=== PATIENT | female | born 1950 | race Caucasian/White ===

== ENCOUNTER 2022-07-08 08:58 | Outpatient (CLI) | payer OTHER, SELFPAY ==
[2022-07-08 14:15] LABS: Albumin* 5.1 g/dL (3.3-5.0); Chloride* 94 mmol/L (96-114); Sodium* 137 mmol/L (135-149)
[2022-07-08 14:18] LABS: Alkaline Phosphatase* 61 U/L (40-150); Aspartate Amino Transferase* 27 U/L (12-35); Bilirubin Total* 0.7 mg/dL (0.1-1.5); Blood Urea Nitrogen* 23 mg/dL (7-30); Carbon Dioxide* 31 mmol/L (20-32); Cholesterol* 194 mg/dL (90-199); Creatinine* 1.1 mg/dL (0.5-1.5); Estimated Glomerular Filt Rate 54 ml/min; Glucose* 100 mg/dL (60-115); Total Protein* 7.8 g/dL (6.0-8.3)
[2022-07-08 14:19] LABS: Alanine Aminotransferase* 25 U/L (4-35); Calcium* 10.2 mg/dL (8.4-10.6); HDL Cholesterol* 74 mg/dL (>=50); LDL Cholesterol Calculated 85 mg/dL (<100); Triglycerides* 176 mg/dL (40-149)
[2022-07-08 14:30] LABS: Creatinine Urine 91.2 mg/dL
[2022-07-08 14:33] LABS: Microalbumin Creatinine Ratio 10 mg/g (0-30); Microalbumin Urine < 1 mg/dL
== END 2022-07-08 08:59 | disposition home or self-care (01) ==
PROVIDERS: PCP Physician Assistant Medical; Visit Provider Physician Assistant Medical
DX: Z00.00 Encounter for general adult medical examination without abnormal findings (principal); E78.5 Hyperlipidemia, unspecified; R73.03 Prediabetes
CPT/HCPCS: 80053; 80061; 82043; 82570

== ENCOUNTER 2023-09-15 09:35 | Outpatient (CLI) | payer OTHER, SELFPAY | END 2023-09-15 09:36 | disposition home or self-care (01) | LOC: NFLDREF 09-16 07:26 | PROVIDERS: PCP Physician Assistant Medical; Referring Provider Physician Assistant Medical; Visit Provider Physician Assistant Medical | DX: E78.5 Hyperlipidemia, unspecified (principal); R73.03 Prediabetes; I10 Essential (primary) hypertension; R35.0 Frequency of micturition; R19.5 Other fecal abnormalities; R10.2 Pelvic and perineal pain; R79.89 Other specified abnormal findings of blood chemistry; J45.909 Unspecified asthma, uncomplicated | CPT/HCPCS: 80053; 80061; 82043; 82570; 82607; 84443 ==

== ENCOUNTER 2023-09-16 11:45 | Outpatient (CLI) | payer MEDICARE, SELFPAY | END 2023-09-16 11:46 | disposition home or self-care (01) | LOC: NFLDREF 09-22 16:04 | PROVIDERS: PCP Physician Assistant Medical; Referring Provider Physician Assistant Medical; Visit Provider Physician Assistant Medical | DX: R35.0 Frequency of micturition (principal); E78.5 Hyperlipidemia, unspecified; I10 Essential (primary) hypertension; R73.03 Prediabetes; R79.89 Other specified abnormal findings of blood chemistry | CPT/HCPCS: 82043; 82570; 87086 ==

== ENCOUNTER 2023-09-28 07:07 | Outpatient (CLI) | payer MEDICARE, SELFPAY ==
--- NOTE | 2023-09-28 07:15 | CRLHL7_ITS ---
For Patients: As a result of the Century Cures Act, medical imaging exams and procedure reports are released immediately into your electronic medical record. You may view this report before your referring provider. If you have questions, please contact your health care provider. CLINICAL HISTORY: pelvic pressure TECHNIQUE: 2D ontiveros scale ultrasound. In addition color Doppler and spectral Doppler analysis was performed of the pelvis using a transabdominal and transvaginal approach. FINDINGS: The myometrium has a normal uniform echotexture. The uterus measures 5.8 x 2.5 x 3.2 cm. The endometrial lining measures 10 mm in thickness. Possible polyp is present measuring 12 x 5 x 9 millimeters. The right ovary measures 1.6 x 0.8 x 1.5 cm in size and the right ovary measures 1.6 x 1.0 x 1.1 cm. The ovaries demonstrate normal arterial and venous blood flow on color Doppler and spectral Doppler analysis. There are no suspicious fluid collections within the cul-de-sac. IMPRESSION: Possible endometrial polyp measuring 12 x 5 x 9 millimeters. No uterine fibroid. Normal ovaries. No adnexal mass. No torsion. No excess pelvic free fluid. Dictated by Sriram Fuentes MD @ 09/28/2023 10:16:03 AM (Electronically Signed)
== END 2023-09-28 07:08 | disposition home or self-care (01) ==
LOC: US 07:10
PROVIDERS: PCP Physician Assistant Medical; Visit Provider Physician Assistant Medical
DX: R10.2 Pelvic and perineal pain (principal)
CPT/HCPCS: 76830; 76856

== ENCOUNTER 2023-10-31 08:33 | Outpatient (CLI) | payer MEDICARE, SELFPAY | END 2023-10-31 08:34 | disposition home or self-care (01) | LOC: NFLDREF 11-14 14:50 | PROVIDERS: PCP Physician Assistant Medical; Referring Provider Physician Assistant Medical; Visit Provider Physician Assistant Medical | DX: E83.52 Hypercalcemia (principal) | CPT/HCPCS: 82306; 82310; 83970 ==

== ENCOUNTER 2023-11-23 08:02 | Outpatient (CLI) | payer MEDICARE, SELFPAY | END 2023-11-23 08:03 | disposition home or self-care (01) | LOC: LKVREF 08:03 | PROVIDERS: PCP Physician Assistant Medical; Visit Provider Physician Assistant Medical | DX: E83.52 Hypercalcemia (principal); Z01.818 Encounter for other preprocedural examination | CPT/HCPCS: 82310 ==

== ENCOUNTER 2023-11-29 07:48 | Day surgery (SDC) | payer MEDICARE, SELFPAY ==
[2023-11-29 08:00] VITALS: BP 148/84; PULSE 74; RESP 16; TEMP 36.6; O2SAT 96; BMI 25.8
[2023-11-29] MEDS: LACTATED RINGERS 1000 ML 1,000 ML 100 ML IV (08:35)
[2023-11-29] MEDS: SODIUM CHLORIDE 0.9 % (FLUSH) 10 ML SYRINGE IVF (08:35)
--- NOTE | 2023-11-29 08:35 | W.PM.H&PU ---
History & Physical Update History & Physical Update H&P Reviewed and patient assessed: No changes noted
[2023-11-29] MEDS: BUPIVACAINE 0.5% 30 ML INJECTION (09:30)
--- NOTE | 2023-11-29 09:33 | W.ANESCHARGE ---
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
--- NOTE | 2023-11-29 09:52 | W.PM.GYNPROC ---
Procedure Note Time Seen by Provider: 09:52 Date of procedure: 11/29/23 Pre-op diagnosis: Thickened endometrial stripe Post-op diagnosis: same Procedure: Hysteroscopy, dilation curettage, polypectomy (TruClear) Anesthesia: MAC Complications: None Surgeon: Brii Coleman MD Estimated blood loss (mL): 5 IV fluids (mL): 400 Pathology: specimen obtained, sent to pathology Condition: stable Disposition: same day Findings: 1 cm polyp-like mass at the left uterine fundus Otherwise atrophic endometrium Unremarkable bilateral tubal ostia Procedure Description: Procedure in detail: Patient was taken to the operating room with IV running. She was positioned in dorsal lithotomy position with her legs fully supported in Yellofin stirrups. Monitored anesthesia care was administered. She was prepped and draped in the usual sterile fashion. Exam under anesthesia was performed for the above-noted findings. Speculum was inserted. Cervix visualized and grasped along the anterior lip with a single-tooth tenaculum. Paracervical block was performed in the usual fashion with 0.5% Marcaine, total 20 mL. Cervix was serially dilated to accommodate the TRUCLEAR hysteroscope. This was assembled with saline inflow and outflow in place. The line was flushed of bubbles. The hysteroscope was advanced through the cervix into the endometrial cavity for the above noted findings. The tissue morcellator was then inserted through the operating channel. Window lock was performed. Under direct visualization, the endometrial polyp/mass was resected in its entirety without difficulty. The remainder of the endometrial cavity was atrophic, no circumferential curettage was required. The hysteroscope and morcellator were then removed from the uterus. Tenaculum was removed from the anterior lip of cervix. Hemostasis was noted. Patient tolerated procedure well. She was taken to recovery area in stable condition. Surgical debrief completed firming EBL of 5 mL, fluid deficit of 115mL, no UOP, IVF 400mL. Specimen is endometrial curettings, sent for pathologic evaluation.
--- NOTE | 2023-11-29 09:57 | W.ANESCHARGE ---
Anesthesia Charges Start Date/Time Anesthesia Start Date: 11/29/23 Anesthesia Start Time: 09:15 Stop Date/Time Anesthesia Stop Date: 11/29/23 Anesthesia Stop Time: 10:00 Summary Extremes of Age - Over 70 or under 1: MDA
[2023-11-29 09:58] VITALS: BP 101/76; PULSE 74; RESP 16; TEMP 36.8; O2SAT 97
[2023-11-29 10:00] VITALS: BP 93/64; PULSE 69; RESP 16; TEMP 36.8; O2SAT 97
[2023-11-29 10:15] VITALS: BP 113/72; PULSE 79; RESP 18; O2SAT 98
[2023-11-29 10:30] VITALS: BP 127/93; PULSE 71; RESP 16; TEMP 36.8; O2SAT 96
--- NOTE | 2023-11-29 11:07 | SUR.PHASEII ---
Discharge instructions given to patient and her spouse. Signature page signed by patient, but was accidentally taken home by her.
== END 2023-11-29 10:50 | disposition home or self-care (01) ==
PROVIDERS: PCP Physician Assistant Medical; Visit Provider Obstetrics & Gynecology
PROC: 0UDB8ZZ Extraction of Endometrium, Via Natural or Artificial Opening Endoscopic (ICD-10-PCS; CPT 58558; principal; 2023-11-29 09:15)
DX: N84.0 Polyp of corpus uteri (principal); R93.89 Abnormal findings on diagnostic imaging of other specified body structures
CPT/HCPCS: 58558; 00952; 85018; 88305; 99100; J0665; J1885; J2405; J3010; J7120

== ENCOUNTER 2023-12-29 08:51 | Outpatient (CLI) | payer MEDICARE, SELFPAY ==
--- NOTE | 2023-12-29 10:35 | W.ANESCHARGE ---
Anesthesia Charges Start Date/Time Anesthesia Start Date: 12/29/23 Anesthesia Start Time: 09:54 Stop Date/Time Anesthesia Stop Date: 12/29/23 Anesthesia Stop Time: 10:57 Summary Extremes of Age - Over 70 or under 1: MDA
--- NOTE | 2023-12-29 10:54 | W.ANESCHARGE ---
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
== END 2023-12-29 08:52 | disposition home or self-care (01) ==
LOC: OP CLINIC 08:51
PROVIDERS: PCP Physician Assistant Medical; Visit Provider Surgery
DX: R19.5 Other fecal abnormalities (principal); K63.5 Polyp of colon; K64.4 Residual hemorrhoidal skin tags; K57.30 Diverticulosis of large intestine without perforation or abscess without bleeding
CPT/HCPCS: 00811; 45381; 45385; 88305; 99100; J2704

== ENCOUNTER 2024-09-27 08:13 | Outpatient (CLI) | payer MEDICARE, SELFPAY | END 2024-09-27 08:14 | disposition home or self-care (01) | PROVIDERS: PCP Physician Assistant Medical; Visit Provider Physician Assistant Medical | DX: E78.5 Hyperlipidemia, unspecified (principal); I10 Essential (primary) hypertension; R82.90 Unspecified abnormal findings in urine; Z13.29 Encounter for screening for other suspected endocrine disorder | CPT/HCPCS: 80053; 80061; 84443; 87086 ==

== ENCOUNTER 2025-01-07 07:37 | Outpatient (CLI) | payer MEDICARE, SELFPAY ==
--- NOTE | 2025-01-07 09:05 | P.ANES_ITS ---
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
--- NOTE | 2025-01-07 09:05 | W.ANESCHARGE ---
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
--- NOTE | 2025-01-07 09:44 | P.ANES_ITS ---
Anesthesia Charges Start Date/Time Anesthesia Start Date: 01/07/25 Anesthesia Start Time: 08:35 Stop Date/Time Anesthesia Stop Date: 01/07/25 Anesthesia Stop Time: 09:02 Summary Extremes of Age - Over 70 or under 1: MDA Coding CPT Codes CPT Codes: ANES LWR INTST NDSC NOS - 95724 ([id number]) P2 - PATIENT W/MILD SYST DISEASE, QK - WELDING SETTER 2-4 CNCRNT ANES PROC, QX - POLISHING MACHINE OPERATOR SVC W/ MD MED DIRECTION Additional Codes: Summary - Extremes of Age - Over 70 or under 1: MDA ([id number])
--- NOTE | 2025-01-07 09:44 | W.ANESCHARGE ---
Anesthesia Charges Start Date/Time Anesthesia Start Date: 01/07/25 Anesthesia Start Time: 08:35 Stop Date/Time Anesthesia Stop Date: 01/07/25 Anesthesia Stop Time: 09:02 Summary Extremes of Age - Over 70 or under 1: MDA Coding CPT Codes CPT Codes: ANES LWR INTST NDSC NOS - 06171 ([id number]) P2 - PATIENT W/MILD SYST DISEASE, QK - SUSTAINABILITY CONSULTANT 2-4 CNCRNT ANES PROC, QX - TEST DATA DEVELOPER SVC W/ MD MED DIRECTION Additional Codes: Summary - Extremes of Age - Over 70 or under 1: MDA ([id number])
== END 2025-01-07 07:38 | disposition home or self-care (01) ==
LOC: OP CLINIC 07:38
PROVIDERS: PCP Physician Assistant Medical; Visit Provider Internal Medicine
DX: D12.2 Benign neoplasm of ascending colon (principal); D12.3 Benign neoplasm of transverse colon; D12.5 Benign neoplasm of sigmoid colon; K57.30 Diverticulosis of large intestine without perforation or abscess without bleeding; Z98.890 Other specified postprocedural states; Z86.0100 Personal history of colon polyps, unspecified
CPT/HCPCS: 00811; 45380; 88305; 99100; J2704